=== PATIENT | male | born 1995 | race Caucasian/White ===

== ENCOUNTER 2018-05-27 18:04 | Emergency (ER) | payer MEDICAID ==
[~2018-05-27] VITALS: Ht 185.4 cm; Wt 79.5 kg
[2018-05-27] MEDS ORDERED: SODIUM CHLORIDE 0.9% 1,000 ML IV ONE (18:30)
[2018-05-27 18:50] LABS: BASOPHILS % (AUTO) 0.6 % (0.0-2.0); EOSINOPHILS % (AUTO) 1.5 % (1.0-6.0); HEMATOCRIT 37.6 % (41-53); HEMOGLOBIN 13.1 g/dL (13.5-17.5); LYMPHOCYTES # (AUTO) 2.3 K/uL (1.0-4.8); LYMPHOCYTES % (AUTO) 26.2 % (22.0-44.0); MEAN CORPUSCULAR HEMOGLOBIN 30.2 pg (26.0-34.0); MEAN CORPUSCULAR HGB CONC 34.9 G/dL (31.0-37.0); MEAN CORPUSCULAR VOLUME 87 fL (80-100); MONOCYTES % (AUTO) 11.5 % (2.0-9.0); NEUTROPHILS # (AUTO) 5.3 K/uL (1.8-7.7); NEUTROPHILS % (AUTO) 60.2 % (40.0-70.0); PLATELET COUNT (AUTO) 238 K/uL (150-450); RED BLOOD CELL COUNT(AUTO) 4.34 MIL/uL (4.50-5.90); RED CELL DISTRIBUTION WIDTH 13.1 % (11.5-14.5)
[2018-05-27 19:03] LABS: ANION GAP 9 mmol/L (8-16); CARBON DIOXIDE 27 mmol/L (22-29); CHLORIDE 103 mmol/L (98-107); CREATININE 1.01 mg/dL (0.60-1.30); GLOMERULAR FILTR. RATE CALC > 60 mL/min (>60); GLUCOSE,RANDOM 99 mg/dL (70-110); POTASSIUM 3.5 mmol/L (3.5-5.1); SODIUM SERUM 139 mmol/L (136-145); UREA NITROGEN, BLOOD 10 mg/dL (7-18)
[2018-05-27 19:11] LABS: ALANINE AMINOTRANSFERASE 29 U/L (12-78); ALBUMIN 4.3 g/dL (3.4-5.0); ALKALINE PHOSPHATASE 48 U/L (46-116); ASPARTATE AMINOTRANSFERASE 37 U/L (15-37); BILIRUBIN,TOTAL 1.5 mg/dL (0.1-1.0); LIPASE 62 U/L (73-393)
[2018-05-27 19:14] LABS: INR 1.2 (0.9-1.1)
[2018-05-27] MEDS ORDERED: IOVERSOL 320 MG/ML 100 ML VIAL ONE (19:15)
[2018-05-27] MEDS ORDERED: HYDROCODONE/ACETAMINOPHEN 5-325 MG TABLET PO ONE (19:15)
[2018-05-27] MEDS ORDERED: SODIUM CHLORIDE 0.9% 100 ML ONE (19:16)
[2018-05-27 20:28] VITALS: BP 129/80
== END 2018-05-27 21:03 | disposition home or self-care (01) ==
LOC: EMS 18:05
DX: S30.0XXA Contusion of lower back and pelvis, initial encounter (principal); S00.03XA Contusion of scalp, initial encounter; S00.83XA Contusion of other part of head, initial encounter; S80.01XA Contusion of right knee, initial encounter; M25.531 Pain in right wrist; M54.2 Cervicalgia; G43.909 Migraine, unspecified, not intractable, without status migrainosus; F31.9 Bipolar disorder, unspecified; F17.210 Nicotine dependence, cigarettes, uncomplicated; Y04.0XXA Assault by unarmed brawl or fight, initial encounter; Y93.89 Activity, other specified; Y92.89 Other specified places as the place of occurrence of the external cause; Y99.8 Other external cause status
CPT/HCPCS: 36415; 70450; 70486; 72125; 73110; 73562; 73590; 74177; 80053; 83690; 85025; 85610; 99285; J7050; Q9967

== ENCOUNTER 2018-07-02 10:56 | Emergency (ER) | payer SELFPAY ==
[~2018-07-02] VITALS: Ht 185.4 cm; Wt 77.3 kg
[2018-07-02 12:11] VITALS: BP 137/83
[2018-07-02] MEDS ORDERED: CEPHALEXIN MONOHYDRATE 500 MG CAPSULE PO ONE (13:00)
[2018-07-02] MEDS ORDERED: SULFAMETHOX/TRIMETH DS 800-160 MG/TABLET PO ONE (13:00)
== END 2018-07-02 13:09 | disposition home or self-care (01) ==
LOC: EMS 12:31
DX: L03.115 Cellulitis of right lower limb (principal); L03.114 Cellulitis of left upper limb; G43.909 Migraine, unspecified, not intractable, without status migrainosus; F31.9 Bipolar disorder, unspecified; F17.210 Nicotine dependence, cigarettes, uncomplicated
CPT/HCPCS: 99283

== ENCOUNTER 2018-10-14 11:28 | Inpatient (IN) | payer MEDICAID ==
[~2018-10-14] VITALS: Ht 185.4 cm; Wt 73.9 kg
[2018-10-14 12:22] LABS: BASOPHILS % (AUTO) 0.9 % (0.0-2.0); EOSINOPHILS % (AUTO) 1.4 % (1.0-6.0); HEMATOCRIT 40.5 % (41-53); HEMOGLOBIN 13.8 g/dL (13.5-17.5); LYMPHOCYTES # (AUTO) 1.5 K/uL (1.0-4.8); MEAN CORPUSCULAR HEMOGLOBIN 29.9 pg (26.0-34.0); MEAN CORPUSCULAR HGB CONC 34.1 G/dL (31.0-37.0); MEAN CORPUSCULAR VOLUME 88 fL (80-100); MONOCYTES # (AUTO) 0.4 K/uL (0.1-1.0); MONOCYTES % (AUTO) 8.2 % (2.0-9.0); NEUTROPHILS # (AUTO) 3.1 K/uL (1.8-7.7); NEUTROPHILS % (AUTO) 60.5 % (40.0-70.0); PLATELET COUNT (AUTO) 248 K/uL (150-450)
[2018-10-14 12:29] LABS: ANION GAP 7 mmol/L (8-16); CALCIUM, TOTAL 9.3 mg/dL (8.8-10.5); CARBON DIOXIDE 29 mmol/L (22-29); CHLORIDE 107 mmol/L (98-107); CREATININE 0.88 mg/dL (0.60-1.30); GLOMERULAR FILTR. RATE CALC > 60 mL/min (>60); GLUCOSE,RANDOM 93 mg/dL (70-110); POTASSIUM 3.7 mmol/L (3.5-5.1); SODIUM SERUM 143 mmol/L (136-145); UREA NITROGEN, BLOOD 13 mg/dL (7-18)
[2018-10-14 12:38] LABS: ALANINE AMINOTRANSFERASE 22 U/L (12-78); ALBUMIN 4.1 g/dL (3.4-5.0); ALKALINE PHOSPHATASE 48 U/L (46-116); ASPARTATE AMINOTRANSFERASE 18 U/L (15-37); BILIRUBIN,TOTAL 0.5 mg/dL (0.1-1.0)
[2018-10-14] MEDS ORDERED: LORazepam 1 MG TABLET PO ONE (13:15)
[2018-10-14] MEDS ORDERED: LORazepam 2 MG TABLET PO PRN (13:45)
[2018-10-14] MEDS ORDERED: HALOPERIDOL 5 MG TABLET PO PRN (13:45)
[2018-10-14 13:58] LABS: CHOL/HDL RATIO 2.5 (4.2-7.3); CHOLESTEROL 136 mg/dL (131-200); HDL CHOLESTEROL 54 mg/dL (40-60); LDL CHOL (CALC.) 76 mg/dL (0-130); TRIGLYCERIDES 32 mg/dL (15-150)
[2018-10-14 14:05] LABS: AMPHET/METH SCREEN,URINE NEGATIVE (NEGATIVE); BARBITURATE SCREEN, URINE NEGATIVE (NEGATIVE); BENZODIAZEPINES SCREEN,URINE NEGATIVE (NEGATIVE); CANNABINOID SCREEN,URINE POSITIVE (NEGATIVE); METHADONE SCREEN, URINE NEGATIVE (NEGATIVE); OPIATE SCREEN,URINE NEGATIVE (NEGATIVE)
[2018-10-14 14:09] LABS: PHENCYCLIDINE SCREEN,URINE NEGATIVE (NEGATIVE)
[2018-10-14 14:39] LABS: COCAINE SCREEN,URINE NEGATIVE (NEGATIVE)
[2018-10-14 17:02] VITALS: BP 134/71
[2018-10-14] MEDS ORDERED: DOCUSATE SODIUM 100 MG CAPSULE PO PRN (17:30)
[2018-10-14] MEDS ORDERED: ALBUTEROL SULFATE HFA 90 MCG/PUFF 8 GM INHALER IH PRN (17:30)
[2018-10-14] MEDS ORDERED: GuaiFENesin/D-METHORPHAN [SUGAR-FREE] 200-20MG/10 ML SYRUP UDCUP PO PRN (17:30)
[2018-10-14] MEDS ORDERED: CloNIDine HCL 0.1 MG TABLET PO PRN (17:30)
[2018-10-14] MEDS ORDERED: IBUPROFEN 400 MG TABLET PO PRN (17:30)
[2018-10-14] MEDS ORDERED: MAGNESIUM HYDROXIDE SUSPENSION 30 ML UDCUP PO PRN (17:30)
[2018-10-14] MEDS ORDERED: PETROLATUM,WHITE 71 GM JELLY TP PRN (17:30)
[2018-10-14] MEDS ORDERED: ACETAMINOPHEN 325 MG TABLET PO PRN (17:30)
[2018-10-14] MEDS ORDERED: NICOTINE 14 MG/24 HOUR PATCH TD PRN (17:30)
[2018-10-14] MEDS ORDERED: ONDANSETRON HCL 4 MG TABLET PO PRN (17:30)
[2018-10-14] MEDS ORDERED: LOPERAMIDE HCL 2 MG CAPSULE PO PRN (17:30)
[2018-10-14] MEDS ORDERED: MAG HYDROX/AL HYDROX/SIMETH ES 30 ML SUSPENSION UDCUP PO PRN (17:30)
[2018-10-15 07:13] LABS: CHOL/HDL RATIO 2.6 (4.2-7.3)
[2018-10-15 08:05] VITALS: BP 116/73
[2018-10-15] MEDS: RisperiDONE 1 MG TABLET PO SCH (17:00)
[2018-10-15 21:15] VITALS: BP 112/67
[2018-10-16 00:36] VITALS: BP 110/64
[2018-10-16] MEDS: ZOLPIDEM TARTRATE 10 MG TABLET PO PRN (01:23)
[2018-10-16 08:05] VITALS: BP 125/67
[2018-10-16] MEDS: RisperiDONE 1 MG TABLET PO SCH ×2 (09:42→17:45)
[2018-10-16 17:00] VITALS: BP 120/66
[2018-10-17] MEDS: ZOLPIDEM TARTRATE 10 MG TABLET PO PRN (00:40)
[2018-10-17 00:54] VITALS: BP 111/88
[2018-10-17 08:05] VITALS: BP 124/70
[2018-10-17] MEDS: RisperiDONE 1 MG TABLET PO SCH ×2 (09:00→17:00)
[2018-10-17] MEDS ORDERED: RISP1 PO (15:09)
== END 2018-10-17 17:15 | disposition home or self-care (01) | DRG 750 ==
LOC: EMS 11:29 → 3EI 16:12 → EMS 16:28
PROVIDERS: ADMIT Psychiatry & Neurology Child & Adolescent Psychiatry; ATTEND Psychiatry & Neurology Child & Adolescent Psychiatry
DX: F25.0 Schizoaffective disorder, bipolar type (principal); Z91.14 Patient's other noncompliance with medication regimen; F12.90 Cannabis use, unspecified, uncomplicated; F17.210 Nicotine dependence, cigarettes, uncomplicated; F41.9 Anxiety disorder, unspecified; F19.10 Other psychoactive substance abuse, uncomplicated; G43.909 Migraine, unspecified, not intractable, without status migrainosus; F32.9 Major depressive disorder, single episode, unspecified; Z71.6 Tobacco abuse counseling; Z71.51 Drug abuse counseling and surveillance of drug abuser; Z79.899 Other long term (current) drug therapy
CPT/HCPCS: 87081; G0480